=== PATIENT | female | born 1970 | race Caucasian/White ===

== ENCOUNTER 2020-10-01 12:38 | Emergency (ER) | payer BC ==
[2020-10-01] MEDS ORDERED: Sodium Chloride 0.9% 1,000 ML IV SCH (15:00)
--- NOTE | 2020-10-01 15:04 | EDM.PDOC ---
ED HPI GENERAL MEDICAL PROBLEM - General Chief Complaint: General Stated Complaint: [facility] NEED [facility] Time Seen by Provider: 10/01/20 14:30 Source of Information: Reports: Patient, Family History Limitations: Reports: No Limitations - History of Present Illness INITIAL COMMENTS - FREE TEXT/NARRATIVE: 50-year-old female presents with dizziness, weakness, lightheaded and persistent nausea with an ongoing febrile syndrome that is yet to be diagnosed. I saw her several days ago and she responded well to 1 L of fluids, blood cultures were drawn and those were all negative. She said she had a fever of 103 last night at home, her temperature is now normal as it was when she was in the ER on her last visit. No shortness of breath, no vomiting, she admits that 2 days ago she had a good day and had a good appetite. She continues to take the doxycycline. Onset: Other (Waxing and waning) Duration: Week(s): (3 weeks of symptoms) Associated Symptoms: Reports: Fever/Chills, Loss of Appetite, Malaise, Weakness. Denies: Cough, Shortness of Breath - Related Data Allergies Allergy/AdvReac Type Severity Reaction Status Date / Time furosemide [From Lasix] Allergy Hives Verified 10/01/20 14:33 ropinirole [From Requip] Allergy Hives Verified 10/01/20 14:33 Home Meds: Home Meds Acebutolol [Sectral] 200 mg PO BID 09/28/20 [History] Calcium Carb/Vit D3/Minerals [Calcium 600+D Plus Minerals] 1 each PO DAILY [History] Cholecalciferol (Vitamin D3) [Vitamin D3] 5,000 unit PO DAILY 09/28/20 [History] Citalopram [Citalopram HBr] 20 mg PO DAILY 09/28/20 [History] Cyanocobalamin (Vitamin B12) [Vitamin B13] 500 mcg PO DAILY 09/28/20 [History] Doxycycline [Doxycycline Hyclate] 100 mg PO BID 09/28/20 [History] Furosemide [Lasix] 40 mg PO DAILY 09/28/20 [History] Gabapentin [Neurontin] 200 mg PO DAILY 09/28/20 [History] Mometasone Furoate 100mcg [Asmanex HFA 100mcg] 2 hr INH DAILY 09/28/20 [History] Multivit-Minerals/Folic Acid [Multivitamin Gummies] 1 tab PO DAILY 09/28/20 [History] Pantoprazole Sodium [Protonix] 40 mg PO DAILY 09/28/20 [History] Tamoxifen [Nolvadex] 20 mg PO DAILY 09/28/20 [History] Ondansetron [Zofran ODT] 4 mg PO Q6H PRN 10/01/20 [History] Past Medical History HEENT History: Reports: Impaired Vision Cardiovascular History: Reports: Pacemaker, Other (See Below) Other Cardiovascular History: tachacardia Respiratory History: Reports: Asthma, Sleep Apnea Gastrointestinal History: Reports: [employer] History: Reports: Musculoskeletal History: Reports: Osteoporosis Endocrine/Metabolic History: Reports: Obesity/BMI 30+ Hematologic History: Reports: Blood Transfusion(s) Oncologic (Cancer) History: Reports: Breast - Infectious Disease History Infectious Disease History: Reports: Chicken Pox - Past Surgical History Head Surgeries/Procedures: Reports: None GI Surgical History: Reports: Cholecystectomy, Other (See Below) Other GI Surgeries/Procedures: HH repair Female Surgical History: Reports: Hysterectomy, Other (See Below) Other Female Surgeries/Procedures: lumpectomy with radiation Social & Family History - Caffeine Use Caffeine Use: Reports: None ED ROS GENERAL - Review of Systems Review Of Systems: See Below Constitutional: Reports: Fever, Chills, Malaise, Decreased Appetite HEENT: Denies: Vision Change Respiratory: Denies: Shortness of Breath, Cough Cardiovascular: Denies: Chest Pain GI/Abdominal: Reports: Nausea. Denies: Abdominal Pain, Vomiting : Reports: No Symptoms Musculoskeletal: Reports: Muscle Pain (Generalized body aches) Skin: Reports: Other (Intermittent hives of the extremities, none at this time) Neurological: Reports: Headache, Weakness Psychiatric: Reports: No Symptoms ED EXAM, GENERAL - Physical Exam Exam: See Below Exam Limited By: No Limitations General Appearance: Alert, No Apparent Distress, Other (Vitals are normal, diastolic blood pressure a little low at 39) Head: Atraumatic Respiratory/Chest: No Respiratory Distress Cardiovascular: Regular Rate, Rhythm Neurological: Alert, Oriented Psychiatric: Normal Affect, Normal Mood Skin Exam: Warm, Dry Course - Vital Signs Last Recorded V/S: Last Vital Signs Temp 98.5 F 10/01/20 14:45 Pulse 72 05/27/21 14:45 Resp 16 10/01/20 14:45 BP 117/39 L 10/01/20 14:45 Pulse Ox 97 10/01/20 14:45 - Orders/Labs/Meds Meds: Medications Discontinued Medications Generic Name Dose Route Start Last Admin Trade Name Tevin PRN Reason Stop Dose Admin Sodium Chloride 1,000 mls @ 999 mls/hr 10/01/20 15:00 10/01/20 15:11 Normal Saline IV 999 mls/hr ASDIRECTED CEZAR Administration - Re-Assessments/Exams Free Text/Narrative Re-Assessment/Exam: 10/01/20 15:06 Questions were answered by the patient, her blood culture results were discussed. 1 L of normal saline was ordered and administered. 10/01/20 17:05 After the fluids the patient felt much better, was talkative and asymptomatic. She will be discharged to increase activity as tolerated and continue regular medications. Departure - Departure Time of Disposition: 17:11 Disposition: Home, Self-Care 01 Clinical Impression: Weakness, Mild dehydration - Discharge Information Instructions: Weakness, [id number] Referrals: Clyde Velez MD [Primary Care Provider] - Forms: ED Department Discharge Care Plan Goals: Rest, fluids, increase activity as tolerated and continue any prescribed medications. It would be reasonable to hold Lasix as discussed. If you develop edema or other concerns, restart the Lasix when needed. Sepsis Event Note (ED) - Evaluation Sepsis Screening Result: No Definite Risk
== END 2020-10-01 17:11 | disposition home or self-care (01) ==
LOC: JP.ED 12:38
DX: E86.0 Dehydration (principal); K21.9 Gastro-esophageal reflux disease without esophagitis; E66.9 Obesity, unspecified; Z68.38 Body mass index [BMI] 38.0-38.9, adult; Z88.5 Allergy status to narcotic agent; Z79.899 Other long term (current) drug therapy
CPT/HCPCS: 99284; J7030

== ENCOUNTER 2021-08-26 17:45 | Emergency (ER) | payer BC ==
[2021-08-26] MEDS ORDERED: Sodium Chloride 0.9% 10 ML Syringe FLUSH PRN (18:55)
[2021-08-26 18:58] LABS: CORONAVIRUS COVID-19 NAA NEGATIVE (NEGATIVE)
[2021-08-26] MEDS: Lactated Ringers 1,000 ML IV ONE (19:12)
[2021-08-26] MEDS: Potassium Chloride 20 MEQ in Premix Bag 1 BAG IV SCH (20:33)
[2021-08-26] MEDS: Potassium Chloride 20 MEQ Tab.ER PO ONE (20:33)
== END 2021-08-26 23:08 | disposition home or self-care (01) ==
LOC: JP.ED 17:45
DX: K52.9 Noninfective gastroenteritis and colitis, unspecified (principal); E86.0 Dehydration; E87.6 Hypokalemia; K21.9 Gastro-esophageal reflux disease without esophagitis; E66.9 Obesity, unspecified; Z68.1 Body mass index [BMI] 19.9 or less, adult; Z88.8 Allergy status to other drugs, medicaments and biological substances; Z79.899 Other long term (current) drug therapy; Z95.0 Presence of cardiac pacemaker; Z20.822 Contact with and (suspected) exposure to COVID-19
CPT/HCPCS: 0241U; 36415; 80053; 81001; 83735; 84132; 85025; 85651; 96365; 96366; 99283; 99284-25; A9270-GY; J3480; J7120

== ENCOUNTER 2022-05-10 15:52 | Emergency (ER) | payer BC ==
[2022-05-10] MEDS ORDERED: Sodium Chloride 0.9% 10 ML Syringe FLUSH PRN (16:31)
[2022-05-10] MEDS ORDERED: Lactated Ringers 1,000 ML IV SCH (16:45)
== END 2022-05-10 18:01 | disposition home or self-care (01) ==
LOC: JP.ED 15:52
DX: E86.0 Dehydration (principal); K21.9 Gastro-esophageal reflux disease without esophagitis; E66.9 Obesity, unspecified; Z68.41 Body mass index [BMI] 40.0-44.9, adult; Z88.8 Allergy status to other drugs, medicaments and biological substances; Z79.82 Long term (current) use of aspirin; Z79.899 Other long term (current) drug therapy
CPT/HCPCS: 36415; 80048; 85025; 87804; 96360; 99284; J3490; J7120